=== PATIENT | female | born 1980 | race Caucasian/White ===

== ENCOUNTER → 2017-06-30 | Outpatient (CLI) | payer OTHER ==
[~2017-06-30] MED LIST: ALBU17I INH; BECL80AE3 INH; MULT-65 PO; SERT100 PO; VENTAER INH
[2017-06-30 14:30] LABS: HEMATOCRIT 38.4 % (35.0-46.0); MEAN CELL VOLUME 91.5 FL (80.0-100.0); MEAN CORPUSCULAR HEMOGLOBIN 31.1 PG (27.0-34.0); MEAN CORPUSCULAR HGB CONC 33.9 % (32.0-36.0); PLATELET COUNT 273 TH/MM3 (150-450); RED CELL DISTRIBUTION WIDTH 12.9 % (11.6-17.2); REVIEW FLAG FINAL; WHITE BLOOD COUNT 8.5 TH/MM3 (4.0-11.0)
== END ==
LOC: CPRE 13:26
PROVIDERS: ATTEND Specialist
DX: Z01.812 Encounter for preprocedural laboratory examination (principal); J34.2 Deviated nasal septum; J32.0 Chronic maxillary sinusitis; J34.3 Hypertrophy of nasal turbinates
CPT/HCPCS: 36415; 85027

== ENCOUNTER → 2017-07-01 | Day surgery (SDC) | payer OTHER ==
--- NOTE | 2017-06-30 18:30 | MH ---
cc: KAILEY HUANG DATE OF ADMISSION 07/01/2017 REASON FOR ADMISSION She is 37 years old. She has chronic sinusitis and nasal obstruction for nasal sinus surgery. PAST MEDICAL HISTORY Unremarkable PAST SURGICAL HISTORY Unremarkable REVIEW OF SYSTEMS Unremarkable FAMILY HISTORY AND SOCIAL HISTORY Unremarkable PHYSICAL EXAMINATION GENERAL: Well-appearing patient no acute distress noted. HEENT: Exam reveals septal deviation, turbinate hypertrophy, copious clear secretion. LUNGS: Clear. CARDIOVASCULAR: Regular rate and rhythm. ABDOMEN: Soft and nontender. EXTREMITIES: Without cyanosis, clubbing or edema. NEUROLOGIC: Alert, oriented, nonfocal neurologic exam. IMPRESSION The patient with chronic sinusitis and nasal obstruction for nasal sinus surgery. Instructed in the method of surgery and possible complication include anesthetic complications, cardiac difficulty, pulmonary difficulty, stroke, or even . Surgical complications bleeding, infection, risk of transfusion, risk of injury to orbit including blindness and diplopia, risk of injury to brain including CSF leak, meningitis, brain abscess or even . The patient appeared to agree, accept and understand above-mentioned risks and benefits. In addition no guarantees or warranties regarding outcome were given. We will therefore proceed with surgery. MD SADIE Greco/MITCHEL /5:33 PM /6:10 PM
[~2017-07-01] VITALS: Ht 170.2 cm; Wt 73.9 kg
[~2017-07-01] MED LIST changes: +ACETAMINOPHEN 1000 MG/100 ML 100 ML IV ONE; +ACETAMINOPHEN/HYDROcodone 325 MG/7.5 MG TAB PO PRN; -ALBU17I INH; +CHLORHEXIDINE GLUCONATE 2 % 1 PACK (2 CLOTHS) TOPICAL PRN; +DO NOT ADM ANY ANTICOAGULANT DRUGS PRN; +EPINEPHrine HCL (1:1000) 30 MG/30 ML VIAL ONE; +LACTATED RINGER'S 1000 ML IV PRN; +LIDOCAINE 1%/EPINEPHrine 1:100,000 SOLN 50 ML VIAL ONE; +METOPROLOL TARTRATE 25 MG TAB PO PRN; +MORPHINE SULFATE 2 MG/ML INJ IV PUSH PRN; +ONDANSETRON HCL 4 MG/2 ML VIAL IV PUSH PRN; +POVIDONE IODINE 5% (ANTISEPSIS KIT) 4 APPLICATIONS EACH NARE PRN; -SERT100 PO; +SODIUM CHLORID 0.9% 500 ML IV PRN; +SUGAMMADEX SODIUM 200 MG/2 ML VIAL IV PUSH ONE
[2017-07-01 10:50] VITALS: BP 117/71; PULSE 86; RESP 18; TEMP 97.9; O2SAT 100
--- NOTE | 2017-07-02 15:38 | MP ---
cc: KAILEY HUANG M.D. DATE OF OPERATION 07/01/2017 PREOPERATIVE DIAGNOSIS Nasal obstruction, chronic sinusitis. POSTOPERATIVE DIAGNOSIS Nasal obstruction, chronic sinusitis. PROCEDURE 1. Open septal reconstruction. 2. Left endoscopic frontal sinusotomy. 3. Right endoscopic frontal sinusotomy. 4. Left endoscopic partial ethmoidectomy. 5. Right endoscopic partial ethmoidectomy. 6. Left and right endoscopic anterior posterior ethmoidectomy. 7. Left and right endoscopic maxillary antrostomy with removal of tissue. 8. Left and right endoscopic sphenoidotomy. 9. Left and right inferior turbinectomy, submucous resection. ANESTHESIA General. ESTIMATED BLOOD LOSS Minimal. COMPLICATIONS No complications. OPERATING SURGEON Dr. Huang. OPERATION Prepped and draped in usual fashion. 1% Xylocaine, 1:100,000 epinephrine injected into nasal septum, inferior turbinates and middle meatus bilaterally. 1:1000 adrenaline-soaked pledgets were placed and then removed. Under endoscopic visualization the balloon apparatus was used to gain access to the frontal sinus on the right. The balloon was advanced into the frontal sinus recess and the frontal sinus recess was dilated to 8 atmospheres x2, similar fashion under endoscopic visualization on the right side as well. Maxillary antrostomy bilaterally was done with balloon and the sphenoid recess as well. Once this was completed the microdebrider was used to remove the uncinate on the right side under endoscopic visualization. Anterior posterior ethmoidectomy performed with microdebrider under endoscopic visualization, frontal sinus recess dissection and sphenoid recess dissection. Minimal polypoid tissue removed from antrum on right side. A Nasopore splint was placed in the middle meatus on the right side. Similar fashion left side anterior posterior ethmoidectomy performed under endoscopic visualization. Frontal sinus recess dissection performed with microdebrider under endoscopic visualization. Natural antrostomy was enlarged and polypoid tissue removed from it on the left side under endoscopic visualization. The sphenoid recess was also dissected with the microdebrider. A Nasopore splint was placed in the left middle meatus. Using the Coblator probe with power level 4, multiple insertions in the inferior turbinate on the left and the right were performed under direct and endoscopic visualization significantly improving the nasal airway. No active bleeding was noted. The patient tolerated the procedure well. MD SADIE Greco/CHRISTY /7:37 AM /3:18 PM
== END | disposition home or self-care (01) ==
LOC: HSDC 07:05
PROVIDERS: ATTEND Specialist
DX: J34.2 Deviated nasal septum (principal); J34.3 Hypertrophy of nasal turbinates; J32.9 Chronic sinusitis, unspecified; J45.909 Unspecified asthma, uncomplicated
CPT/HCPCS: 00160; 30140; 30520; 31255; 31267; 31276; 31287; J0131; J0171; J7120